=== PATIENT | male | born 1960 | race Caucasian/White ===

== ENCOUNTER 2016-09-28 23:01 | Emergency (ER) | payer BC ==
[~2016-09-28] VITALS: Ht 172.7 cm; Wt 79.2 kg
[~2016-09-28 23:01] MED LIST: CYANOCOBAL1000 MCG/2 IM; DILAUDID2 MG PO; FLEXERIL10 MG PO; FLOMAX0.4 MG PO; LIVALO2 MG PO; NAPROSYN500 MG PO; PERCOCET 5/31 TABLET PO; PROMETHAZINE HC25 M1 PO; TRAMADOL HCL50 MG PO; ZOFRAN ODT4 MG PO; ZOFRAN ODT8 MG PO
[2016-09-28] MEDS ORDERED: EPIPEN ADU0.3 MG/0.3 IM (23:45)
[2016-09-28] MEDS ORDERED: DELTASONE20 M1 PO (23:45)
[2016-09-29 00:18] VITALS: BP 143/83
== END 2016-09-29 00:23 | disposition home or self-care (01) ==
LOC: EME 23:01
DX: T78.40XA Allergy, unspecified, initial encounter (principal); E78.5 Hyperlipidemia, unspecified; Z87.442 Personal history of urinary calculi
CPT/HCPCS: 99281; 99284; J7512